=== PATIENT | male | born 1975 | race Hispanic/Latino ===

== ENCOUNTER 2018-03-31 10:12 | Outpatient (CLI) | payer BC ==
--- NOTE | 2018-03-31 10:51 | RAD ---
CHEST TWO VIEWS: HISTORY: Cough. FINDINGS: The cardiac silhouette and pulmonary vasculature are unremarkable. The mediastinum is midline. No c onfluent air space consolidation, pneumothorax, or pleural fluid. IMPRESSION: No active cardiopulmonary abnormalities demonstrated. POS: [facility]
== END 2018-03-31 10:13 | disposition home or self-care (01) ==
LOC: SCSRAD 10:12
PROVIDERS: ATTEND Family Medicine
DX: R05 Cough (principal)
CPT/HCPCS: 71046